=== PATIENT | male | born 1955 | race Caucasian/White ===

== ENCOUNTER 2024-08-31 11:44 | Emergency (ER) | payer MEDICARE, MEDICAID ==
[~2024-08-31] VITALS: Ht 172.7 cm; Wt 59.0 kg
[2024-08-31 11:53] VITALS: O2SAT 98
[2024-08-31] MEDS: ACETAMINOPHEN 325MG TABLET PO ONE (12:45)
[2024-08-31] MEDS: TETANUS, DIPHTHERIA, PERTUSSIS VAC/PF 0.5ML (>10YR OLD) IM ONE (12:45)
[2024-08-31 13:55] VITALS: BP 140/62; PULSE 75; RESP 16; TEMP 36.83628; O2SAT 98
== END 2024-08-31 14:14 | disposition home or self-care (01) ==
LOC: ER 11:44
DX: S09.90XA Unspecified injury of head, initial encounter (principal); K21.00 Gastro-esophageal reflux disease with esophagitis, without bleeding; I67.82 Cerebral ischemia; X58.XXXA Exposure to other specified factors, initial encounter; Y93.89 Activity, other specified; Y92.89 Other specified places as the place of occurrence of the external cause; Y99.8 Other external cause status
CPT/HCPCS: 12001; 99284

== ENCOUNTER 2024-09-10 11:31 | Emergency (ER) | payer MEDICARE, MEDICAID ==
[~2024-09-10] VITALS: Ht 170.2 cm; Wt 78.0 kg
[2024-09-10 11:45] VITALS: BP 148/121; PULSE 84; RESP 16; TEMP 98.3; O2SAT 100
== END 2024-09-10 13:08 | disposition home or self-care (01) ==
LOC: ER 12:47
DX: S01.91XD Laceration without foreign body of unspecified part of head, subsequent encounter (principal); Z48.02 Encounter for removal of sutures; Z98.890 Other specified postprocedural states; Z86.39 Personal history of other endocrine, nutritional and metabolic disease; X58.XXXD Exposure to other specified factors, subsequent encounter
CPT/HCPCS: 99281